=== PATIENT | female | born 1945 | race Caucasian/White ===

== ENCOUNTER → 2017-02-19 | Outpatient (CLI) | payer MEDICARE, BC, OTHER ==
--- NOTE | 2017-02-19 15:42 | RADRPT ---
PROCEDURE: XR pelvis/right hip. CLINICAL INDICATION: Hip pain TECHNIQUE: AP pelvis/lateral right hip view performed. COMPARISON: No prior studies are available for comparison. FINDINGS: There is a right total hip replacement. There is no evidence of loosening of the prosthesis. No hard camejo failure is identified. There is moderate left hip osteoarthrosis. This is associated with joint space narrowing, subchondra l sclerosis and osteophytosis. There is normal osseous mineralization. No fractures or osseous les ions are identified. The soft tissues are unremarkable. IMPRESSION: Right total hip replacement. Moderate left hip osteoarthrosis. RPTAT: [facility] .Dakota Levi MD, MD Date Time Electronically viewed and signed by .Dakota Levi MD, on 02/19/2017 15:41 .B/
--- NOTE | 2017-02-19 19:39 | HKNOTE ---
DATE OF SERVICE: 02/19/2017 MAIN COMPLAINT: 1. Concern about right total hip replacement with a recalled socket. 2. Pain in the left hip. HISTORY OF MAIN COMPLAINT: The patient is a 71-year-old female who underwent a right total hip repl acement performed by me in 2007. She has been extremely pleased with the results of the right hip r eplacement, has never had a day of problems with it. She has, however, been very concerned that the hip sockets were recalled and label printer, Dr. Bart Noriega, ordered serum cobalt and chromium levels. This is the predominant reason for her visiting m e today. Meanwhile, fairly recently, the patient spent a day digging in her yard for about 8 hours. The next day she had quite severe pain in the left thigh. She could hardly walk. The pain is over the grea ter trochanter and radiates towards the left buttocks as well as down the leg to just above the knee . She saw Dr. Noriega, who diagnosed a "strained muscle." She was given Depo-Medrol Dosepak. This hel ped a great deal and she is now at least 70% better than she was. She was also put on Flexeril. Dr Dar Noriega then referred her to Dr. Vinay Sanchez at [facility]. He thought she had a "muscula r/soft tissue problem" of the lateral aspect of the left thigh. She was put on a muscle relaxant an d an anti-inflammatory. She improved very rapidly. Today she can walk from her car to my third jaskaran or office fairly easily. She has no numbness or tingling in her legs. She denies any back pain at present. Note that she has a long history of problems with her lower back. She does not have any b ack pain at the present time. She has had a series of 3 lumbar epidural cortisone injections. Thes e have not helped her hip problem very much at all. PHYSICAL EXAMINATION: GENERAL: The patient is a fit looking 71-year-old female. She walks with a slight antalgic gait. VITAL SIGNS: Height 5 feet 1 inches, weight 130 pounds. Blood pressure 140/85, temperature 99.3. She walks without a walking aid. She comes in with her . HIPS: Examination of the left hip: Flexion 90 degrees, external rotation 30, internal rotation les s than 30 degrees, adduction 10 degrees. Pain in the left hip is reproduced at all limits of motion . There is no tenderness over the greater trochanter or anywhere down the lateral aspect along the left thigh in the area of the iliotibial band or trochanteric bursa. Examination of the right hip s hows a full range of motion without pain. IMAGING: Plain x-rays of the right hip obtained today show a technically well performed ASR hip rep lacement. All components have remained well attached to the bone without any signal that there migh t be loosening on the way. ____ show a right total hip replacement on the ASR type. All components are well attached to the ozzy ne and are well aligned. No evidence of erosions. No evidence of loosening or any other underlying problem. MRI scan of the left hip was reviewed. This shows minimal narrowing of the joint space. The outlin e of the femoral head and socket are completely normal. No evidence of underlying pathology. Serum cobalt level obtained on 01/30/2017 was reported as being 2.2 mcg/liter. Serum chromium level s obtained on 01/30/2017 reported as being 3.4 mcg/liter. DISCUSSION: The patient came in to see me today to give an opinion concerning the level of the ok lt and chromium that has resulted from her right recalled hip replacement. Coincidentally, in worki ng her up for this examination it was discovered that she has a stiff right hip and that she is very concerned that the elevated cobalt and chromium was a negative finding that needed immediate attent ion. Coincidentally, she mentions she has pain in the opposite hip (the left hip). She had mild narrowin g of the joint space. DISCUSSION: The patient is advised that the right hip with the ASR socket is highly unlikely to be a source of trouble to her. It is well attached to the bone, there are no subchondral or intraosseo us cyst formations or erosion. She has no symptoms that can be referred to her hip. The elevated s jay cobalt and chromium levels are way the lower than the current standard for concern, which is 10 mcg/liter. Patient was reassured that there is no mechanical or ____ management. The patient was advised that the range of motion in her right hip is pretty much standard following surface replacement. The pat ient is given reassurance that the right total hip replacement of the ASR socket is excellent and sh ows no sign of erosion or wear. She is also advised that once we get past the 4-year postop point t hese sockets almost never cause trouble. Patient's second problem is with her left hip. This seems to have been somewhat of a diagnostic con undrum. By way of diagnostic tests as well as by way of treatment, the left hip was injected with 10 mL of 2 % lidocaine. The patient was thereafter able to increase the range of motion of the left hip to walt ost a full and complete motion. This seems to indicate to me that there is some underlying disorder in the bone on the left side. MANAGEMENT: The patient is being referred for an MRI scan of the left hip joint. She is also being sent for CBC, sed rate, C-reactive protein, and rheumatoid factor. She will be seen by me again thereafter for reevaluation of her symptoms. Dictated By: YAZMIN DOHERTY/SHANNEN Conf#: [id number] DID#: [id number]
== END | disposition home or self-care (01) ==
LOC: HKI 14:38
DX: M25.552 Pain in left hip (principal); Z96.641 Presence of right artificial hip joint
CPT/HCPCS: 20610; 73502; G0463